=== PATIENT | female | born 1995 | race African-American/Black ===

== ENCOUNTER 2017-01-01 11:46 | Emergency (ER) | payer MEDICAID ==
[~2017-01-01] VITALS: Ht 180.3 cm; Wt 59.0 kg
[~2017-01-01 11:46] MED LIST: NOCURR
[2017-01-01 14:17] VITALS: BP 127/77
== END 2017-01-01 14:26 | disposition home or self-care (01) ==
LOC: EMS 11:48
DX: J06.9 Acute upper respiratory infection, unspecified (principal); R05 Cough; F12.10 Cannabis abuse, uncomplicated
CPT/HCPCS: 71020; 81025; 99283

== ENCOUNTER 2018-03-08 18:15 | Emergency (ER) | payer MEDICAID, OTHER ==
[~2018-03-08] VITALS: Ht 182.9 cm; Wt 59.1 kg
[2018-03-08 19:56] LABS: APPEARANCE,URINE CLEAR (CLEAR); BILIRUBIN,URINE NEGATIVE (NEGATIVE); GLUCOSE, URINE (UA) NEGATIVE (NEGATIVE); KETONES,URINE NEGATIVE (NEGATIVE); LEUKOCYTE ESTERASE ,URINE TRACE (NEGATIVE); NITRATE,URINE NEGATIVE (NEGATIVE); OCCULT BLOOD,URINE NEGATIVE (NEGATIVE); PROTEIN,URINE NEGATIVE (NEGATIVE)
[2018-03-08] MEDS ORDERED: LIDOCAINE HCL/PF 1% 2 ML VIAL IM ONE (20:00)
[2018-03-08] MEDS ORDERED: CefTRIAXone SODIUM 1 GM/VIAL IM ONE (20:00)
[2018-03-08] MEDS ORDERED: AZITHROMYCIN 250 MG TABLET PO ONE (20:00)
[2018-03-08 20:35] LABS: RBC,URINE 0-2 /HPF (0-2)
[2018-03-08 20:36] LABS: BACTERIA,URINE Few /HPF (None Seen); MUCUS,URINE Few LPF (None Seen); SQUAMOUS EPITHELIAL CELL,UR Moderate /LPF (None Seen)
[2018-03-08 20:48] VITALS: BP 116/85
== END 2018-03-08 21:00 | disposition home or self-care (01) ==
LOC: EMS 18:16
DX: N89.8 Other specified noninflammatory disorders of vagina (principal); N76.0 Acute vaginitis; M79.1 Myalgia; R03.0 Elevated blood-pressure reading, without diagnosis of hypertension; F12.90 Cannabis use, unspecified, uncomplicated
CPT/HCPCS: 81001; 81025; 96372; 99283; J0696; J3490

== ENCOUNTER 2019-08-01 18:12 | Emergency (ER) | payer SELFPAY ==
[~2019-08-01] VITALS: Ht 180.3 cm; Wt 59.1 kg
[2019-08-01] MEDS ORDERED: ETHI1TAB6 PO (18:50)
[2019-08-01 19:15] VITALS: BP 119/80
== END 2019-08-01 19:43 | disposition home or self-care (01) ==
LOC: EMS 18:16
DX: L50.0 Allergic urticaria (principal)

== ENCOUNTER 2023-03-17 10:24 | Emergency (ER) | payer OTHER ==
[~2023-03-17] VITALS: Ht 180.3 cm; Wt 72.7 kg
[~2023-03-17 10:24] MED LIST changes: +ETHI1TAB6 PO; -NOCURR
[2023-03-17 10:36] VITALS: TEMP 98.8
[2023-03-17 10:46] LABS: COVID AG,FIA SOURCE NASAL SWAB
[2023-03-17 11:02] LABS: SARS-COV2 (COVID) ANTIGEN,FIA Negative (Negative)
[2023-03-17 12:30] VITALS: BP 102/71; PULSE 89; RESP 18
[2023-03-17] MEDS ORDERED: IBUPROFEN 600 MG TABLET PO ONE (12:45)
[2023-03-17] MEDS ORDERED: ACET-3385 PO (12:48)
[2023-03-17] MEDS ORDERED: IBUP-1492 PO (12:48)
== END 2023-03-17 12:50 | disposition home or self-care (01) ==
LOC: EMS 10:48
DX: U07.1 COVID-19 (principal); Z98.890 Other specified postprocedural states
CPT/HCPCS: 99283; 87426; C9803

== ENCOUNTER 2023-04-15 08:12 | Emergency (ER) | payer OTHER ==
[~2023-04-15] VITALS: Ht 180.3 cm; Wt 68.2 kg
[~2023-04-15 08:12] MED LIST changes: +ACET-3385 PO; +IBUP-1492 PO
[2023-04-15 08:15] VITALS: TEMP 98
[2023-04-15 08:29] VITALS: BP 121/76; PULSE 84; RESP 16
[2023-04-15] MEDS ORDERED: PENI500T2 PO (08:33)
[2023-04-15] MEDS ORDERED: IBUP-1492 PO (08:33)
[2023-04-15] MEDS ORDERED: PERTUSS(ACELL),DIPH,TET VAC/PF 0.5 ML SYRINGE IM. ONE (08:45)
== END 2023-04-15 08:50 | disposition home or self-care (01) ==
LOC: EMS 08:20
DX: S01.511A Laceration without foreign body of lip, initial encounter (principal); Z98.890 Other specified postprocedural states; W22.8XXA Striking against or struck by other objects, initial encounter; Y93.89 Activity, other specified; Y92.89 Other specified places as the place of occurrence of the external cause; Y99.8 Other external cause status
CPT/HCPCS: 90471; 90715; 99283